=== PATIENT | male | born 1985 | race African-American/Black ===

== ENCOUNTER 2019-12-08 20:56 | Emergency (ER) | payer OTHER ==
[~2019-12-08] VITALS: Ht 167.6 cm; Wt 68.0 kg
[2019-12-08 20:58] VITALS: BP 135/83
--- NOTE | 2019-12-08 21:20 | NUR ---
PT IS MEDICALLY CLEARED FOR INCARCERATION. PT IS IN STABLE CONDITION. AMBULATORY ON STEADY. RELEASED UNDER THE CARE OF LINDA.
== END 2019-12-08 21:21 ==
LOC: ER 20:58 → EDBD 20:58 → ER 21:21
DX: Z02.89 Encounter for other administrative examinations (principal)